=== PATIENT | female | born 1965 | race Caucasian/White ===

== ENCOUNTER → 2017-06-20 | Outpatient (CLI) | payer BC ==
[~2017-06-20] VITALS: Ht 160 cm; Wt 64.0 kg
[~2017-06-20] MED LIST: ACETAMINOPHEN 325 MG TAB PO PRN; ASPI-435 PO; ATROPINE SULFATE 0.1 MG/ML 5ML SYR IV PRN; BENZOCAIN/TETRACA/BUTAM SPRAY 200 APPLN/20 GM SPRY ONE; CANNULA ONE; DC ALL ANTICOAGULANTS ONE; FENTANYL CITRATE INJ 50 MCG/1 ML 2 ML VIAL ONE; MIDAZOLAM HCL 1 MG/ML 2ML VIAL ONE; ONDANSETRON INJ 2 MG/ML 2 ML VIAL IV PRN; SERT50TA PO; SODIUM CHLORIDE 0.9% 1000ML 1,000 ML IV SCH; SODIUM CHLORIDE 0.9% 1000ML 250 ML IV PRN
[2017-06-20 07:09] VITALS: BP 121/60; PULSE 60; TEMP 37.2; O2SAT 100; Ht 160 cm; Wt 64.0 kg
--- NOTE | 2017-06-20 07:57 | History and Physical ---
History General Date of Service: Jun 20, 2017. Stated Complaint: Mitral Valve Stenosis *Ambrose Doing* History of Present Illness History: This is a 51-year-old female with a history of rheumatic fever as a child. In 1998 she was evaluated by her security police in [place] and was sent to [facility] where she had a transesophageal echocardiogram. She was told that she had mitral stenosis. The mitral stenosis has not bothered her over the years until recently she's noted some increased shortness of breath and dyspnea with activity. She had an echocardiogram completed as an outpatient which shows severe mitral stenosis with dilatation of left atrium and no significant pulmonary hypertension. I saw this patient in late March for preoperative risk assessment regarding her breast biopsy. Fortunately that breast biopsy was negative. She is now here for workup for mitral stenosis which will include a transesophageal echocardiogram along with a left and right heart catheterization. Review of Systems The 10 point review of systems is negative except for the history of chief complaint. All Other Systems: Reviewed and Negative Past Medical/Surgical History The patient has minimal past medical history. She has no prior history of diabetes, hypercholesterolemia, asthma, strokes or kidney disease. As an outpatient she had a Holter monitor that failed to show any atrial arrhythmias. She is currently in every day smoker. Family History The family has a history of diabetes no significant heart history Social History Smoking Status: Current Every Day Smoker Current Home Medications Reported Home Medications Medications Dose Route/Sig Max Daily Dose Days Date Category Zoloft (Sertraline HCl) 50 Mg Tab 50 Mg PO DAILY 06/20/17 Reported Physical Exam Date Time Temp Pulse Resp B/P (MAP) Pulse Ox O2 Delivery O2 Flow Rate FiO2 06/20/17 07:09 37.2 60 10 121/60 (80) 100 Nasal Cannula 2 Weight in Kilograms: 64 Head: normocephalic ENMT: normal ENT inspection, hearing grossly normal, pharynx normal Neck: supple, trachea midline, no masses Lungs: Auscultation: breath sounds normal, no wheezing, no rales/crackles, no rhonchi Cardiovascular: Heart Auscultation: RRR, murmur (diastolic murmur along the left sternal border) Peripheral Pulses: Bruits: none appreciated Carotid Pulse: normal on the left, normal on the right Radial Pulse: normal on the left, normal on the right Abdomen: Inspection & Palpation: soft, non-distended, no tenderness, guarding & rebound Liver: no hepatomegaly Musculoskeletal: normal, normal strength (5/5 throughout) Extremities: no cyanosis, no edema Neurologic: Gait & Station: normal gait Cranial Nerves: grossly intact Sensation: grossly intact Impression Assessment and Plan Impression: 1. Rheumatic mitral stenosis 2. History of smoking Recommendations: As outlined above the patient is here for further evaluation and workup of mitral stenosis. She will have a transesophageal echocardiogram followed by a right and left heart catheterization today. I've explained the risk benefit and intent of both the transesophageal echocardiogram and heart catheterization. She understands and wants to proceed. The procedures are being completed in anticipation of treatment of her mitral stenosis either by balloon valvuloplasty or possible surgical commissurotomy.
[2017-06-20 08:33] VITALS: BP 137/63; PULSE 59; O2SAT 96
[2017-06-20 08:35] VITALS: BP 128/61; PULSE 66; O2SAT 95
[2017-06-20 08:40] VITALS: BP 130/86; PULSE 84; O2SAT 95
[2017-06-20 08:45] VITALS: BP 155/75; PULSE 84; O2SAT 95
--- NOTE | 2017-06-20 10:24 | Pre Sedation Assessment ---
Pre Sedation Assessment General Date of Sedation: Jun 20, 2017. 9:29 AM Vital Signs Past 12 Hours Date Time Temp Pulse Resp B/P (MAP) Pulse Ox O2 Delivery O2 Flow Rate FiO2 06/20/17 10:15 59 16 128/70 (89) 100 Room Air 06/20/17 10:10 55 16 130/72 (91) 100 Room Air 06/20/17 10:05 55 16 132/79 (96) 100 Room Air 06/20/17 10:00 57 16 135/79 (97) 100 Room Air 06/20/17 08:59 60 14 123/52 (75) 99 Room Air 06/20/17 08:50 63 12 156/68 (97) 98 Room Air 06/20/17 08:49 Nasal Cannula 2 06/20/17 08:45 84 10 155/75 95 Nasal Cannula 2 06/20/17 08:40 84 10 130/86 95 Nasal Cannula 2 06/20/17 08:39 Nasal Cannula 2 06/20/17 08:35 66 17 128/61 95 Nasal Cannula 2 06/20/17 08:33 59 17 137/63 96 Nasal Cannula 2 06/20/17 07:09 37.2 60 10 121/60 (80) 100 Nasal Cannula 2 Review Cardiovascular: regular rate, rhythm, no gallop, no JVD Lungs: chest non-tender, lungs clear Pre-Sedation Airway Assessment Smoking Status: Current Every Day Smoker Hx of Sleep Apnea: No Hx of difficult intubation: No Short Thick Neck: No Oral Cavity: WNL Mallampati Classification: Class II ASA Classification: Class II NPO Status Date of Last Intake of Fluids: Jun 19, 2017 Time of Last Intake of Fluids: 23:00 Date of Last Intake of Solids: Jun 19, 2017 Time of Last Intake of Solids: 23:00 Procedure Planning Contraindications for Sedation: None Current Medications Reviewed: Yes Notes The planned sedation has been discussed with the patient. Informed Consent was obtained. I have identified the patient, determined the appropriateness of sedation and have assessed the patient immediately prior to the procedure. All medicine(s) and interventions are by my order.
--- NOTE | 2017-06-20 10:25 | Post Sedation Assessment ---
Post Sedation Assessment General Date of Sedation Jun 20, 2017. 9:59 AM Vital Signs: Vital Signs Past 12 Hours Date Time Temp Pulse Resp B/P (MAP) Pulse Ox O2 Delivery O2 Flow Rate FiO2 06/20/17 10:15 59 16 128/70 (89) 100 Room Air 06/20/17 10:10 55 16 130/72 (91) 100 Room Air 06/20/17 10:05 55 16 132/79 (96) 100 Room Air 06/20/17 10:00 57 16 135/79 (97) 100 Room Air 06/20/17 08:59 60 14 123/52 (75) 99 Room Air 06/20/17 08:50 63 12 156/68 (97) 98 Room Air 06/20/17 08:49 Nasal Cannula 2 06/20/17 08:45 84 10 155/75 95 Nasal Cannula 2 06/20/17 08:40 84 10 130/86 95 Nasal Cannula 2 06/20/17 08:39 Nasal Cannula 2 06/20/17 08:35 66 17 128/61 95 Nasal Cannula 2 06/20/17 08:33 59 17 137/63 96 Nasal Cannula 2 06/20/17 07:09 37.2 60 10 121/60 (80) 100 Nasal Cannula 2 Post Procedure Recovery Score Activity: (2) Moves 4 extremities * Respiration: (2) Deep breath/cough Circulation: (2) +/-20% PreAnes Value Consciousness: (2) Fully Awake Oxygen Saturation: (2) > 92% On Room Air Post Anesthesia Score: 10 Discharge Sedation Level of Care: Phase I Post Sedation Plan On clinical assessment, the patient appears to have tolerated the sedation without complications. Patient is recovering as anticipated. Patient will continue to be monitored by nursing and may be discharged when sedation discharge criteria are met per below protocol. Upon Completions of procedure and additional 15 minutes continue every 5 minute vital signs and the P.A.R. score; then discharge to a Phase I or Fast Track to Phase II per the following guidelines: * Discharge Patient to appropriate Phase II area if PAR is 8 or greater or return to pre- procedure baseline. The post - procedure orders will be as directed. * If PAR score is less than 8 or not return to pre-procedure baseline then patient will follow Phase I monitoring till PAR is reached for Phase II. The Phase I may be done in procedure room or may call to secure a Phase I area. * If naloxone or flumazenil are used for reversal, hold in Phase I for an additional 60 -120 minutes before discharge to Phase II. Please call the Sedation Physician to re-evaluate and complete post-note for discharge to Phase II area. Do NOT discharge from procedure sedation or Phase 1 until post- sedation evaluation note is complete by procedure /sedation MD Sedation Discharge Instructions to be given to the patient at discharge to home.
--- NOTE | 2017-06-20 10:37 | Procedure Note ---
Cardiac Cath Report Procedure: 1. Right heart catheterization 2. Left heart catheterization 3. Coronary angiography 4. Left ventriculogram History: This is a 51-year-old female with a history of rheumatic fever as a child who was found by echocardiography to have mitral stenosis. She is here today for a cardiac catheterization in preparation for possible balloon valvuloplasty. Procedure summary: After the patient was given informed consent. She was taken to the cardiac catheterization lab where she was prepped and draped in the usual manner. A right transfemoral approach was utilized. A Ruthven-Marvin catheter was utilized for the right heart pressures and cardiac outputs. A 5 [place] pigtail catheter was utilized for left ventriculogram. 5 [place] diagnostic catheters were utilized for coronary angiograms. Following the procedure the patient had the arterial site closed with a minx device and she was returned to the holding area the catheter builder in stable condition. Hemodynamic data: Right atrial pressure 6/2 mmHg Right ventricular pressure 35/4 mmHg Pulmonary artery pressure 33/6 mmHg Pulmonary capillary wedge pressure 11 mmHg Left ventricular pressure 125/11 mmHg Central aortic pressure 126/55 mmHg Cardiac output by Izzy equation 4.2 L/m Cardiac output by thermal dilution 5.2 L/m Mitral valve mean gradient by Izzy equation 11.8 mmHg with a valve area being 0.95 cm Mitral valve mean gradient by thermal dilution 11.8 mmHg with a valve area being 1.18 cm Coronary angiography: Selective injections of the left coronary artery revealed the left trunk be patent. The LAD is actually small especially distally to the apex of the heart. The LAD system is widely patent and within normal limits. The left circumflex artery consists of a small first marginal branch and a large second marginal branch. The left circumflex system is widely patent within normal limits. Selective injections of the right coronary artery revealed to be dominant. The right coronary arteries with an appearance, widely patent and within normal limits. Left ventriculogram: The left ventricle is of normal size. Normal left ventricular systolic function with estimated left ventricular ejection fraction of 55%. The LVEDP was 11 mmHg. Summary: The patient has severe mitral stenosis. There is borderline to mild pulmonary hypertension. Widely patent and normal coronary anatomy. Normal LV function. Recommendations: The patient will be referred for an evaluation at the valve clinic at [facility] for consideration of balloon valvuloplasty.
--- NOTE | 2017-06-20 10:50 | Cardiac Catheterization ---
Procedure Note Procedure Date Jun 20, 2017. Pre-Procedure Diagnosis Valvular Disease AUC Score 9 Post-Procedure Diagnosis Normal Coronary Arteries Procedure(s) Performed Coronary Angiography, Left Heart Cath, Right Heart Cath, LV Angiography Supervisor Painting Dr. Boggs Sales Engagement Manager(s) None Estimated Blood Loss None Medication(s) Heparin, Versed, Lidocaine 1% Summary of Findings See dictated report Hemodynamics Rest Ao: 126/55 Final Ao: 129/63 LV: 128/8 Recommendations valve replacement Specimens None Radiation Exposure (mGy) 718 Contrast (mls) 104 Procedural Complication(s) None Disposition Jewelry Repairer Holding/Recovery ACC Data Cardiac Status Clinical evaluation leading to the procedure CAD Presntation: No Sxs, no angina Anginal Classification: No symptoms Heart Failure: No Cardiogenic Shock w/in 24Hrs: No Cardiac Arrest w/in 24Hrs: No Imaging studies past 6 months: Yes Stress studies past 6 months: No Coronary Anatomy Dominant: Right Left Main (% Stenosis): Normal LAD (% Stenosis): Normal Circumflex (% Stenosis): Normal RCA (% Stenosis): Normal Left Ventricular Angiography EF (%): 55 Mitral Regurgitation: None Diagnostic Status: Elective Closure Device Percutaneous Entry Location: Femoral Closure Device: Mynx Recommendations: management recommendations (the patient will be seen at the health clinic at [facility])
--- NOTE | 2017-06-20 10:55 | Discharge Instructions ---
Discharge Instructions Procedure Procedure Date: Jun 20, 2017. Reason for Visit: Mitral Valve Stenosis *Ambrose Doing*. Discharge Discharge Date: Jun 20, 2017. Discharge Diagnosis: Mitral stenosis Last Recorded Wt (Kilograms): 64 Anesthesia Post Anesthesia Instructions: If you have had General Anesthesia or IV Sedation: * Do not drive today. * Resume driving when surgeon permits. * Do not make important decisions or sign legal documents today. * Call surgeon for: 1. Temperature elevations greater than 101 degrees F. 2. Uncontrollable pain. 3. Excessive bleeding. 4. Persistent nausea and vomiting. 5. Medication intolerance (nausea, vomiting or rash). * For nausea and vomiting use only clear liquids such as: tea, soda, bouillon until nausea subsides, then gradually increase diet as tolerated. * If you have any concerns or questions, call your surgeon's office. If physician is unavailable and it is an emergency, call 911 or go to the nearest emergency room. Instructions Activity Recommendations: limitations Recommended Home Diet: resume previous diet Allergies: Coded Allergies: Penicillins (Unverified Allergy, Intermediate, HIVES, 06/20/17) as per patient as a child Provider Instructions ACTIVITY RECOMMENDATIONS: It is common to feel weak and fatigue for a few days. * Do not drive or operate any motorized equipment for the next three days. * Limit stair usage (2 or 3 trips a day only) for the next three days. * Do not lift anything heavier than 10 pounds for the next three days. * Do not engage in vigorous exercise or any sports for the next five days. * You may shower the day after your procedure, but do not immerse the area for three days. Cleanse the site gently with soap and water. SPECIAL CARE INSTRUCTIONS: * You may replace the pressure dressing or band-aid the morning after the procedure. * After your procedure, it is normal to have a small bruise or small lump at the site. Examine your site daily for any change in the bruise or lump, redness, swelling, drainage or numbness. Notify your doctor if any change. BLEEDING: * If there is a small amount of bleeding at the site, lie down and apply firm pressure with a clean cloth for ten minutes. When the bleeding stops, lie quietly keeping the procedure limb straight for six hours. Notify your doctor as soon as possible. * If the bleeding does not stop after ten minutes or if there is a large amount of bleeding or spurting, call 911 immediately. Continue to lie down and hold firm pressure until help arrives. SKIN IRRITATION: * You may experience some redness and/or swelling in the area where radiation was administered. If any skin irritation occurs, please contact your family physician. FOLLOW UP VISIT: Keep any scheduled doctor appointments. Follow Up Follow-up with: Follow-up appointment Walker Barajas to see Dr. Higgins July 04. Our office will call to confirm Bernie Johnson Recommendations: Call your doctor if: * Temperature above 101 degrees * Pain not relieved by pain medicine ordered * There is increased drainage or redness from any incision * You have any unanswered questions or concerns. Your Doctors Instructions noted above were prepared by provider Ronal Boggs. Patient Signature Section: Patient Instructions Signature Page Kalee Jason Patient (or Guardian) Signature/Date: I have read and understand the instructions given to me by my caregivers. Caregiver/RN/Doctor Signature/Date: The above-named patient and/or guardian has received patient instructions on this date. + Original Patient Signature Page (only) stays with chart. Please make copy for patient.
[2017-06-20 14:00] VITALS: BP 128/76; PULSE 52; O2SAT 100
--- NOTE | 2017-06-20 15:07 | TEE ---
*NOTICE TO RECEIVING DEMOCRAT AGENCY This information is strictly Confidential and protected under [place] law. [place] law prohibits you from making any further disclosure of this information unless further disclosure is expressly permitted by the written consent of the person to whom it pertains or is authorized by law. A general authorization for the release of medical or other information is not sufficient for this purpose. Hospital accepts no responsibility if the information is made available to any other person, INCLUDING THE PATIENT. Interpretation Summary * Name: JOSAFAT COLLINS Study Date: 06/20/2017 07:41 AM BP: 137/63 mmHg * Patient Location: [facility] HR: 83 * : 1965 (M/d/yyyy) Gender: Female Height: 63 in * Age: 51 yrs Ethnicity: [place] Weight: 140 lb * Ordering Physician: Ronal Boggs DO * Performed By: Halle Rodriguez RDCS * * Reason For Study: Mitral Stenosis * BSA: 1.7 m2 * -- Conclusions -- * Rheumatic mitral stenosis. * There is severe mitral stenosis. * The left atrium is moderately dilated. * No thrombus is detected in the left atrial appendage. * Left ventricular systolic function is normal. Procedure Details * The transesophageal portion of this study was personally supervised by the undersigned interpreting physician. * VASU Probe #1 utilized for procedure. * The study was performed in Cardiopulmonary Department. * Time out was conducted by the physician, nurse, and microbiology technician with positive identification of patient and procedure. * Informed consent for Transesophageal Echocardiogram was obtained prior to the procedure. * An intravenous line was placed. A topical anesthetic agent was used for oropharangeal anesthesia. A bite block was inserted. * The patient's vital signs, including blood pressure, heart rate, pulse oximetry and cardiac rhythm were monitored throughout the procedure . * Midazolam 3 mg administered for sedation. * Fentanyl 25 mcg was administered for procedural sedation. * The posterior oropharynx was anesthetized using a topical anesthetic spray. A bite guard was inserted. * A multifrequency, multiplane transesopheageal echocardiographic endoscope was inserted and manipulated in the standard fashion to achieve multiplane views. * The transesophageal probe was passed without difficulty. * The usual views were obtained; basal, mid-esophageal, transgastric and aortic views. * The patient tolerated the procedure well without evidence of orophangeal or esophageal trauma. * A 2D transesophageal echocardiogram with spectral and color flow Doppler was performed. * Start time: 8:33 am End time: 8:49 am * A 2D transesophageal echocardiogram with Doppler and color flow Doppler was performed. Left Ventricle * The left ventricle is normal in size. * Left ventricular systolic function is normal. * Ejection Fraction = 60-65%. Right Ventricle * The right ventricle is normal size. * The right ventricular systolic function is normal. Atria * The left atrium is moderately dilated. * No thrombus is detected in the left atrial appendage. * Right atrial size is normal. * No ASD detected; PFO is not assessed. Mitral Valve * Rheumatic mitral stenosis. * There is severe mitral stenosis. Tricuspid Valve * The tricuspid valve is normal in structure and function. Aortic Valve * The aortic valve is tricuspid. The leaflet thickness if normal. There is no aortic stenosis, and no significant insufficiency. * The aortic valve opens well. * There is no significant aortic regurgitation. Pulmonic Valve * The pulmonic valve is not well seen, but is grossly normal. * There is no significant pulmonary regurgitation. Great Vessels * The aortic root and proximal ascending aorta are normal sized. Pericardium * There is no pericardial effusion. MMode 2D Measurements and Calculations LVOT diam 1.8 cm LVOT area 2.5 cm\S\2 Doppler Measurements and Calculations MV V2 max 228.6 cm/sec MV max PG 20.9 mmHg MV V2 mean 171.4 cm/sec MV mean PG -12.62 mmHg MV V2 VTI 64.3 cm MVA(VTI) 1.0 cm\S\2 MV P1/2t max radha 222.2 cm/sec MV P1/2t 91.2 msec MVA(P1/2t) 2.4 cm\S\2 MV dec slope 713.6 cm/sec\S\2 LV V1 max PG 6.7 mmHg LV V1 mean PG 2.7 mmHg LV V1 max 129.3 cm/sec LV V1 mean 74.3 cm/sec LV V1 VTI 26.8 cm SV(LVOT) 66.2 ml SI(LVOT) 39.8 ml/m\S\2
== END | disposition home or self-care (01) ==
LOC: C.CPL 06:43
PROVIDERS: ATTEND Internal Medicine Interventional Cardiology
DX: I05.0 Rheumatic mitral stenosis (principal); F17.200 Nicotine dependence, unspecified, uncomplicated

== ENCOUNTER 2017-09-03 18:40 | Inpatient (IN) | payer BC ==
[~2017-09-03] VITALS: Ht 162.6 cm; Wt 61.7 kg
[~2017-09-03 18:40] MED LIST changes: -ACETAMINOPHEN 325 MG TAB PO PRN; -ATROPINE SULFATE 0.1 MG/ML 5ML SYR IV PRN; -BENZOCAIN/TETRACA/BUTAM SPRAY 200 APPLN/20 GM SPRY ONE; -CANNULA ONE; -DC ALL ANTICOAGULANTS ONE; -FENTANYL CITRATE INJ 50 MCG/1 ML 2 ML VIAL ONE; -MIDAZOLAM HCL 1 MG/ML 2ML VIAL ONE; -ONDANSETRON INJ 2 MG/ML 2 ML VIAL IV PRN; -SODIUM CHLORIDE 0.9% 1000ML 1,000 ML IV SCH; -SODIUM CHLORIDE 0.9% 1000ML 250 ML IV PRN
[2017-09-03] MEDS ORDERED: SODIUM CHLORIDE 0.9% 1000ML 1,000 ML IV STA (18:45)
[2017-09-03] MEDS ORDERED: ONDANSETRON INJ 2 MG/ML 2 ML VIAL IV STA (18:45)
--- NOTE | 2017-09-03 19:09 | DIAGNOSTIC IMAGING REPORT ---
CHEST ONE VIEW PORTABLE CLINICAL HISTORY: Overdose COMPARISON STUDY: No previous studies for comparison. FINDINGS: The heart is at the upper limits of normal in size. There is prominence left heart border, possibly indicative of a prominent left atrial appendage.. There is no focal pulmonary consolidation. There is no failure. There are no pleural effusions.[ IMPRESSION: No active disease in the chest. Electronically signed by: Shaquille Dee M.D. 09/03/2017 7:08 PM Dictated Date/Time: 09/03/2017 7:07 PM
[2017-09-03 19:18] LABS: BASO % 0.5 %; BASO ABS # 0.04 K/uL (0-0.2); EOS % 0.8 %; EOS ABS # 0.06 K/uL (0-0.5); HEMATOCRIT 40.3 % (37-47); HEMOGLOBIN 13.8 g/dL (12.0-16.0); IG# 0.01 K/uL (0.00-0.02); LYMPH % 19.2 %; LYMPH ABS # 1.48 K/uL (1.2-3.4); MEAN CELL VOLUME 93.7 fL (80-100); MEAN CORPUSCULAR HEMOGLOBIN 32.1 pg (25-34); MEAN CORPUSCULAR HGB CONC 34.2 g/dl (32-36); MEAN PLATELET VOLUME 9.7 fL (7.4-10.4); MONO % 9.2 %; MONO ABS # 0.71 K/uL (0.11-0.59); NEUT % 70.2 %; NEUT ABS # 5.41 K/uL (1.4-6.5); PLATELET COUNT 215 K/uL (130-400); RED CELL DISTRIBUTION WIDTH CV 14.8 % (11.5-14.5); RED CELL DISTRIBUTION WIDTH SD 50.4 fL (36.4-46.3); WHITE BLOOD COUNT 7.71 K/uL (4.8-10.8)
[2017-09-03 19:25] LABS: PTT PATIENT 23.8 SECONDS (21.0-31.0)
[2017-09-03 19:36] LABS: BLOOD UREA NITROGEN 13 mg/dl (7-18); CREATININE 0.86 mg/dl (0.60-1.20); GLUCOSE 93 mg/dl (70-99)
[2017-09-03 19:37] LABS: ALBUMIN 3.5 gm/dl (3.4-5.0); ALT/SGPT 19 U/L (12-78); AST/SGOT 16 U/L (15-37); CALCIUM 8.2 mg/dl (8.5-10.1); CARBON DIOXIDE 22 mmol/L (21-32); POTASSIUM 3.5 mmol/L (3.5-5.1); SODIUM 135 mmol/L (136-145)
[2017-09-03 19:39] LABS: ALKALINE PHOSPHATASE 57 U/L (45-117); LIPASE 2344 U/L (73-393); TOTAL PROTEIN 6.4 gm/dl (6.4-8.2)
[2017-09-03] MEDS ORDERED: ASPI81TA28 PO (19:44)
[2017-09-03] MEDS ORDERED: SERT1TAB68 PO (19:44)
[2017-09-03] MEDS ORDERED: TPRSR25 PO (19:45)
[2017-09-03] MEDS ORDERED: CLOP1TAB15 PO (19:45)
--- NOTE | 2017-09-03 21:36 | EMERGENCY ROOM VISIT NOTE ---
History Report prepared by Jeff: Nuvia Olson Under the Supervision of: Dr. Mahamed Oropeza D.O. First contact with patient: 18:40 Chief Complaint: OVERDOSE (INTENTIONAL) Stated Complaint: OVERDOSE History of Present Illness The patient is a 51 year old female who presents to the Emergency Room with persistent overdose starting 1400 today. The patient presents to the ED by EMS. The patient got off work at 1400 today. She returned home and started drinking liquor. She also reports taking 4-5 [place] this afternoon. She does not drink alcohol daily. She denies any drug use. The patient is currently going through a separation with her . She stated that she does not want to live anymore. She has never tried hurting herself before. She has an outpatient therapist, but has never had inpatient psychiatric care before. She last saw her therapist 1 month ago. She had mitral valve balloon surgery 2 weeks ago at [facility]. She does smoke. Her last menstrual period was on the 29th. She denies any nausea or vomiting. The history is limited secondary to patient's intoxication. Source of History: patient, EMS History Limited By: intoxication Onset: 1400 Quality: other (overdose) Timing: other (persistent) Associated Symptoms: No nausea, No vomiting Review of Systems See HPI for pertinent positives & negatives. A total of 10 systems reviewed and were otherwise negative. Past Medical & Surgical Surgical Problems: (1) S/P balloon mitral valvuloplasty Family History No pertinent family history stated. Social History Smoking Status: Current Every Day Smoker Occupation Status: employed Current/Historical Medications Scheduled Aspirin (Aspirin Ec), 81 MG PO DAILY Clopidogrel (Plavix), 75 MG PO DAILY Metoprolol Succinate (Metoprolol Succinate ER), 25 MG PO DAILY Sertraline Hcl (Zoloft), 100 MG PO DAILY Allergies Coded Allergies: Penicillins (Unverified Allergy, Intermediate, HIVES, 06/20/17) as per patient as a child Physical Exam Vital Signs Date Time Temp Pulse Resp B/P (MAP) Pulse Ox O2 Delivery O2 Flow Rate FiO2 09/03/17 21:26 67 09/03/17 21:12 78 18 128/85 100 Room Air 09/03/17 19:17 99 Room Air 09/03/17 18:40 36.8 67 18 128/85 99 Room Air Physical Exam GENERAL: Patient is awake, alert, obtunded, and intoxicated appearing. EYES: The conjunctivae are clear. The pupils are round and reactive. EARS, NOSE, MOUTH AND THROAT: The nose is without any evidence of any deformity. Mucous membranes are moist tongue is midline NECK: The neck is nontender and supple. RESPIRATORY: Normal respiratory effort is noted there is no evidence of wheezing rhonchi or rales CARDIOVASCULAR: Tachycardic, but regular. No definite murmur noted. GASTROINTESTINAL: The abdomen is soft. Bowel sounds are present in all quadrants. Abdomen is nontender MUSCULOSKELETAL/EXTREMITIES: There is no evidence of gross deformity full range of motion is noted in the hips and shoulders SKIN: There is no obvious evidence of any rash. There are no petechiae, pallor or cyanosis noted. NEUROLOGIC: Patient is awake alert and oriented x3 strength is symmetric patellar reflexes are 2+ bilaterally PSYCH: Affect was flat. Patient was tearful and makes poor eye contact. Patient was very guarded and vague about the events of the day. Medical Decision & Procedures ER Provider Diagnostic Interpretation: X-ray results as stated below per interpretation by me and the radiologist. CHEST ONE VIEW PORTABLE CLINICAL HISTORY: Overdose COMPARISON STUDY: No previous studies for comparison. FINDINGS: The heart is at the upper limits of normal in size. There is prominence left heart border, possibly indicative of a prominent left atrial appendage.. There is no focal pulmonary consolidation. There is no failure. There are no pleural effusions.[ IMPRESSION: No active disease in the chest. Electronically signed by: Shqauille Dee M.D. 09/03/2017 7:08 PM Dictated Date/Time: 09/03/2017 7:07 PM Laboratory Results 09/03/17 19:03 Red Blood Count 4.30, Mean Corpuscular Volume 93.7, Mean Corpuscular Hemoglobin 32.1, Mean Corpuscular Hemoglobin Concent 34.2, Mean Platelet Volume 9.7, Neutrophils (%) (Auto) 70.2, Lymphocytes (%) (Auto) 19.2, Monocytes (%) (Auto) 9.2, Eosinophils (%) (Auto) 0.8, Basophils (%) (Auto) 0.5, Neutrophils # (Auto) 5.41, Lymphocytes # (Auto) 1.48, Monocytes # (Auto) 0.71, Eosinophils # (Auto) 0.06, Basophils # (Auto) 0.04 09/03/17 19:03 Test 09/03/17 00:00 09/03/17 19:03 Urine Color YELLOW Urine Appearance CLEAR (CLEAR) Urine pH 5.5 (4.5-7.5) Urine Specific [place] 1.010 (1.000-1.030) Urine Protein NEG (NEG) Urine Glucose (UA) NEG (NEG) Urine Ketones NEG (NEG) Urine Occult Blood NEG (NEG) Urine Nitrite NEG (NEG) Urine Bilirubin NEG (NEG) Urine Urobilinogen NEG (NEG) Urine Leukocyte Esterase NEG (NEG) Urine Opiates Screen POS (NEG) Urine Methadone, Qualitative NEG (NEG) Urine Barbiturates NEG (NEG) Urine Phencyclidine (PCP) Level NEG (NEG) Ur Amphetamine/Methamphetamine NEG (NEG) MDMA (Ecstasy) Screen NEG (NEG) Urine Benzodiazepines Screen NEG (NEG) Urine Cocaine Metabolite NEG (NEG) Urine Marijuana (THC) NEG (NEG) White Blood Count 7.71 K/uL (4.8-10.8) Red Blood Count 4.30 M/uL (4.2-5.4) Hemoglobin 13.8 g/dL (12.0-16.0) Hematocrit 40.3 % (37-47) Mean Corpuscular Volume 93.7 fL (80-100) Mean Corpuscular Hemoglobin 32.1 pg (25-34) Mean Corpuscular Hemoglobin Concent 34.2 g/dl (32-36) Platelet Count 215 K/uL (130-400) Mean Platelet Volume 9.7 fL (7.4-10.4) Neutrophils (%) (Auto) 70.2 % Lymphocytes (%) (Auto) 19.2 % Monocytes (%) (Auto) 9.2 % Eosinophils (%) (Auto) 0.8 % Basophils (%) (Auto) 0.5 % Neutrophils # (Auto) 5.41 K/uL (1.4-6.5) Lymphocytes # (Auto) 1.48 K/uL (1.2-3.4) Monocytes # (Auto) 0.71 K/uL (0.11-0.59) Eosinophils # (Auto) 0.06 K/uL (0-0.5) Basophils # (Auto) 0.04 K/uL (0-0.2) RDW Standard Deviation 50.4 fL (36.4-46.3) RDW Coefficient of Variation 14.8 % (11.5-14.5) Immature Granulocyte % (Auto) 0.1 % Immature Granulocyte # (Auto) 0.01 K/uL (0.00-0.02) Prothrombin Time 10.0 SECONDS (9.0-12.0) Prothromb Time International Ratio 1.0 (0.9-1.1) Activated Partial Thromboplast Time 23.8 SECONDS (21.0-31.0) Partial Thromboplastin Ratio 0.9 Anion Gap 7.0 mmol/L (3-11) Est Creatinine Clear Calc Drug Dose 66.9 ml/min Estimated GFR () 90.7 Estimated GFR (Non- 78.2 BUN/Creatinine Ratio 15.1 (10-20) Calcium Level 8.2 mg/dl (8.5-10.1) Total Bilirubin 0.3 mg/dl (0.2-1) Direct Bilirubin < 0.1 mg/dl (0-0.2) Aspartate Amino Transf (AST/SGOT) 16 U/L (15-37) Alanine Aminotransferase (ALT/SGPT) 19 U/L (12-78) Alkaline Phosphatase 57 U/L (45-117) Total Creatine Kinase 62 U/L (26-192) Total Protein 6.4 gm/dl (6.4-8.2) Albumin 3.5 gm/dl (3.4-5.0) Lipase 2344 U/L (73-393) Human Chorionic Gonadotropin, Qual NEG (NEG) Salicylates Level 3.8 mg/dl (2.8-20) Acetaminophen Level 7 ug/ml (10-30) Ethyl Alcohol mg/dL 284.0 mg/dl (0-3) Laboratory results per my review. Medications Administered Medications (Trade) Dose Ordered Sig/Amanda Route Start Time Stop Time Status Last Admin Dose Admin Sodium Chloride 1,000 ml @ 999 mls/hr Q1H1M STAT IV 09/03/17 18:45 18 19:45 DC 18 18:45 999 MLS/HR Ondansetron HCl (Zofran Inj) 4 mg NOW STAT IV 09/03/17 18:45 18 18:46 DC 09/03/17 19:37 4 MG Sodium Chloride 1,000 ml @ 75 mls/hr [id number] IV 09/03/17 21:53 10/03/17 21:52 09/03/17 21:53 75 MLS/HR ECG Per My Interpretation Indication: toxicologic Rate (beats per minute): 62 Rhythm: normal sinus Findings: no ectopy, other (no acute ST segment abnormality) Comparison ECG Date: no prior available ED Course 1840: The patient was evaluated in room C10. A complete history and physical examination were performed. 1844: Zofran Inj 4 mg IV, NSS 1,000 ml @ 999 mls/hr IV 2016: Upon reevaluation, the patient is stable. The patient will be evaluated for further management and care. 2019: [facility] The patient will be evaluated for further management. Medical Decision Prior records/ancillary studies reviewed. Triage Nursing notes reviewed. Additional history obtained from EMS. Differential diagnosis: Etiologies such as mood disorder, infection, hypoglycemia, electrolyte abnormalities, cardiac sources, intracerebral event, toxicologic, neurologic, as well as others were entertained. The patient is a 51-year-old female who presented to the emergency department for an evaluation of depression. The patient has had problems with depression recently. She drank a significant amount of alcohol and took pills in an attempt to herself. The patient had a severe anxiety provoking episode tonight because of a recently significant other. The patient was not able to be medically cleared in the emergency department because of her elevated alcohol level but also had signs of pancreatitis on laboratory studies. She was not actively vomiting. She was treated with IV fluids and IV anti-medics. I discussed patient's laboratory and radiographic studies with her. I also discussed her case with the on-call [facility] hospitalist group. They have agreed to evaluate the patient in the emergency department for further management and disposition. Medication Reconcilliation Current Medication List: was personally reviewed by me Blood Pressure Screening Patient's blood pressure: Normal blood pressure Blood pressure disposition: Did not require urgent referral Consults Time Called: 2014 [facility]ing Physician[facility] Returned Call: 2019 I discussed the patient's case with him. The patient will be evaluated for further management. Impression Primary Impression: Depression Additional Impressions: Suicide gesture Pancreatitis Alcohol intoxication Scribe Attestation The scribe's documentation has been prepared under my direction and personally reviewed by me in its entirety. I confirm that the note above accurately reflects all work, treatment, procedures, and medical decision making performed by me. Departure Information Dispostion Being Evaluated By Hospitalist Referrals Rebeca Sidhu D.O. (PCP) Patient Instructions My [facility] Problem Qualifiers Primary Impression: Depression Depression Type: unspecified Qualified Codes: F32.9 - Major depressive disorder, single episode, unspecified Additional Impressions: Suicide gesture Encounter type: initial encounter Qualified Codes: X83.8XXA - Intentional self-harm by other specified means, initial encounter Pancreatitis Chronicity: acute Pancreatitis type: alcohol induced Acute pancreatitis complication: unspecified Qualified Codes: K85.20 - Alcohol induced acute pancreatitis without necrosis or infection Alcohol intoxication Complication of substance-induced condition: uncomplicated Qualified Codes: F10.920 - Alcohol use, unspecified with intoxication, uncomplicated
[2017-09-03] MEDS: SODIUM CHLORIDE 0.9% 1000ML 1,000 ML IV SCH (21:53)
[2017-09-03] MEDS ORDERED: LORAZEPAM 0.5 MG TAB PO ONE (22:00)
[2017-09-03] MEDS ORDERED: POLYETHYLENE (MIRALAX) 17 GM PACK PO PRN (22:00)
[2017-09-03] MEDS ORDERED: NITROGLYCERIN 0.4 MG SL PER TAB CHARGE SL PRN (22:00)
[2017-09-03] MEDS ORDERED: ACETAMINOPHEN 325 MG TAB PO PRN (22:00)
[2017-09-03] MEDS ORDERED: ONDANSETRON INJ 2 MG/ML 2 ML VIAL IV PRN (22:00)
[2017-09-03 22:41] VITALS: Ht 162.6 cm; Wt 61.7 kg
--- NOTE | 2017-09-03 23:13 | HISTORY & PHYSICAL EXAMINATION ---
DATE OF ADMISSION: 09/03/2017 CHIEF COMPLAINT: Depression, suicidal ideation, and drug overdose. HISTORY OF PRESENT ILLNESS: This 51-year-old female with past medical history significant for major depression, history of rheumatic heart disease and status post balloon mitral valvoplasty last month at [facility], tobacco use disorder, presents with suicidal ideation with alcohol overdose and 5 pills of her sons Percocet tablets. She was brought in by her sisters. The patient is alert and awake, but crying and saying she just wanted to end her pain. Her heart is broken since she was last 4 months ago with her . She has 2 sons, one is a 23-year-old who lives in the apartment and 17-year-old who lives with her. As per the sister, since she broke up, she is not doing well. She is very depressed. She is on Zoloft since last 4 months and it is not helping. Recently, dose was increased to 100 mg. The patient is constantly crying and saying that she just wanted to let her pain go and she is also drinking more lately. Usually, she used to work as DJ and she used to drink in the weekends, but lately as per sister she is drinking more since about last 1 month. Today, her alcohol level was 284. Tylenol was less than 7 and positive for opiates. Currently, the patient is hemodynamically stable. Denies any chest pain. Denies shortness of breath. No nausea, no vomiting, no abdominal pain. Normal bowel and bladder movements. Ambulation is okay. No cough, no fever. Since her divorce, she is not eating much. She lost several pounds. As per sister, she is eating only here and there and also she is not sleeping much. Sleeping 1 hour here and there. She also developed some bruises since she was started on aspirin and Plavix since her valve surgery and she is supposed to be on aspirin and Plavix for 6 months. Patient is open to help with psychiatry counseling and medications. The patient and sister request for a small dose of Ativan to relax for tonight and they are not worried about alcohol withdrawal as patient has never had withdrawal symptoms in the past and she did not drink much in the past, just started drinking more recently. ALLERGIES: PENICILLINS. PAST MEDICAL HISTORY: As mentioned above. PAST SURGICAL HISTORY: Colonoscopy, balloon valvuloplasty of the mitral valve done on July 30, 2017. Right wrist tendon surgery in 1991. MEDICATIONS: The patient is on aspirin 81 mg p.o. daily, Plavix 75 mg p.o. daily, Toprol-XL 25 mg p.o. daily, Zoloft 100 mg p.o. daily. FAMILY HISTORY: Significant for father had CAD, hypertension. Mother has dementia, diabetes, hypertension. Son has migraines. SOCIAL HISTORY: Currently . Smokes everyday. Previously used to drink on the weekends, but currently drinking more, somewhat few times in a week since last 1 month. No drug history. REVIEW OF SYMPTOMS: As per HPI. Rest of the symptoms negative. PHYSICAL EXAMINATION: GENERAL: Patient seems depressed, constantly crying, moderately build. VITAL SIGNS: Temperature 36.8, pulse 57, respiratory rate 18, blood pressure 128/85, oxygen 100% on room air. HEENT: No pallor, no icterus. Pupils equal, round, and react to light. NECK: No JVD, no neck masses, no carotid bruits. CARDIOVASCULAR: S1, S2 heard. Regular rate and rhythm. No murmur, no gallop. RESPIRATORY SYSTEM: Clear to auscultation bilaterally. No wheezing, no crackles. ABDOMEN: Soft. Bowel sounds present. Nontender. No distention. CENTRAL NERVOUS SYSTEM: Cranial nerves II-XII grossly intact. Nonfocal. EXTREMITIES: Mild pedal edema. No erythema seen. LABORATORIES: Sodium 135, potassium 3.5, chloride 106, bicarbonate 22, BUN 13, creatinine 0.8, serum glucose 93, calcium 8.2, total bilirubin 0.3, direct bilirubin less than 0.1, AST 16, ALT 19, alkaline phosphatase 57, total creatinine kinase 62, lipase 2344, hCG qualitative negative. WBC 7.7, hemoglobin 13.8, hematocrit 40.3, platelets 215. PT 10, INR 1, APTT 23.8. Urinalysis negative. Tox screen, opiates positive, Tylenol level 7, ethyl alcohol 284, salicylates 3.8. Chest x-ray, no acute disease in the chest. EKG: Normal sinus rhythm with rate of 62, no acute disease is seen. ASSESSMENT AND PLAN: This is a 51-year-old female who presents with suicidal ideation, alcoholism, and drug overdose. 1. Suicidal ideation, depression, alcoholism, drinking more lately with alcohol level 287 and took 5 tablets of Percocet. Currently, hemodynamically stable. Constantly crying and seems to be depressed since not eating, losing weight, and not sleeping. Zoloft is not helping. We will admit to tele floor one on one. Iv fluids .Psych consult in am. 2. Alcoholism. The patient was not much drinker, used to drink in weekends, but lately since last 1 month, she is drinking more, not every day but more than usual. Today, alcohol level was 284. The patient and family not worried about any withdrawals, but we will place on thiamine, folic acid, and watch for any withdrawals. 3. Elevated lipase of 2344, mostly from alcoholism. The patient does not have any acute pancreatitis symptoms. No abdominal pain. No nausea or vomiting. We will follow the lipase levels in a.m. If any concerns, we will get a CAT scan and also GI consult. 4. History of rheumatic heart disease and mitral valve disease, status post balloon mitral valvoplasty, on aspirin, Plavix, and Toprol-XL. 5. History of tobacco abuse. 6. Deep venous thrombosis prophylaxis. SCDs and TEDs for now. 7. Disposition: Admit to tele floor. level 1 full code. MTDD
[2017-09-03 23:16] VITALS: O2SAT 100
[2017-09-03 23:35] VITALS: BP 97/62; PULSE 72; TEMP 36.6; O2SAT 96
[2017-09-04 04:43] VITALS: BP 103/61; PULSE 77; TEMP 36.7; O2SAT 96
[2017-09-04 05:11] LABS: BASO % 0.9 %; BASO ABS # 0.04 K/uL (0-0.2); EOS % 2.1 %; HEMATOCRIT 36.1 % (37-47); HEMOGLOBIN 12.2 g/dL (12.0-16.0); IG# 0.01 K/uL (0.00-0.02); LYMPH ABS # 1.45 K/uL (1.2-3.4); MEAN CELL VOLUME 94.3 fL (80-100); MEAN CORPUSCULAR HEMOGLOBIN 31.9 pg (25-34); MEAN CORPUSCULAR HGB CONC 33.8 g/dl (32-36); MEAN PLATELET VOLUME 9.6 fL (7.4-10.4); MONO % 11.3 %; MONO ABS # 0.53 K/uL (0.11-0.59); NEUT % 54.5 %; NEUT ABS # 2.54 K/uL (1.4-6.5); PLATELET COUNT 185 K/uL (130-400); RED CELL DISTRIBUTION WIDTH CV 14.9 % (11.5-14.5); RED CELL DISTRIBUTION WIDTH SD 50.7 fL (36.4-46.3); WHITE BLOOD COUNT 4.67 K/uL (4.8-10.8)
[2017-09-04 05:36] LABS: CALCIUM 7.4 mg/dl (8.5-10.1); CREATININE 0.78 mg/dl (0.60-1.20); POTASSIUM 3.8 mmol/L (3.5-5.1)
[2017-09-04 06:50] VITALS: BP 105/63; PULSE 67; TEMP 36.9; O2SAT 95
[2017-09-04] MEDS ORDERED: SERTRALINE HCL 100 MG TAB PO SCH (09:00)
[2017-09-04] MEDS ORDERED: METOPROLOL SUCC 25MG EXT REL TAB PO SCH (09:00)
[2017-09-04] MEDS ORDERED: ASPIRIN 81 MG ECTAB PO SCH (09:00)
[2017-09-04] MEDS ORDERED: CLOPIDOGREL BISULFATE 75 MG TAB PO SCH (09:00)
[2017-09-04] MEDS: SODIUM CHLORIDE 0.9% 1000ML 1,000 ML IV SCH (11:40)
[2017-09-04 11:45] VITALS: BP 135/78; PULSE 64; TEMP 37.3; O2SAT 96
--- NOTE | 2017-09-04 13:51 | Progress Note ---
Internal Med Progress Note Date of Service: Sep 04, 2017. Provider Documentation: SUBJECTIVE: Patient seen and examined at bedside. She is awake and alert. When asked the reason for the alcohol misuse at home, patient reports that she drank a bottle of whiskey which she has not done before because her had left her to be in a relationship with someone else and she saw photos of them together on Facebook. She sobs during the medical interview. But she is awake and alert and cooperative on physical exam OBJECTIVE: Exam: General- no acute distress Eyes- EOMI Neck- no JVD Lungs- CTABL, no wheezing, no use of accessory muscles Heart- regular heart rate Abdomen- soft, nontender, + bowel sounds Extremities- no edema Neuro- awake and alert, no motor deficits ASSESSMENT & PLAN: This is a 51 year old F who was brought to hospital for admission for suicidal and substance misuse -alcohol and Percocet Patient was found to have elevated alcohol level on admission however when re- assessed by medical doctor, patient does not exhibit signs of lethargy or intoxication or withdrawal symptoms from alcohol or narcotic medication. Patient was found to have elevated levels of lipase 2344 but this is downtrending to 832 on follow up lab work. There is no abdominal tenderness on exam that would suggest pancreatitis Patient is known to have History of rheumatic heart disease and mitral valve disease, status post balloon mitral valvoplasty, on aspirin, Plavix, and Toprol- XL. Patient agrees to undergo inpatient psychiatry evaluation and will be discharged from medical service and transferred to the behavioral health floor of the psychiatry department. Vital Signs: Date Time Temp Pulse Resp B/P (MAP) Pulse Ox O2 Delivery O2 Flow Rate FiO2 09/04/17 12:00 Room Air 09/04/17 11:45 37.3 64 20 135/78 (97) 96 09/04/17 08:00 Room Air 09/04/17 06:50 36.9 67 16 105/63 (77) 95 Room Air 09/04/17 04:43 36.7 77 16 103/61 (75) 96 Room Air 09/04/17 04:00 Room Air 09/03/17 23:35 36.6 72 16 97/62 (74) 96 Room Air 09/03/17 23:30 Room Air 09/03/17 23:16 67 18 99/53 100 09/03/17 21:26 67 09/03/17 21:12 78 18 128/85 100 Room Air 09/03/17 19:17 99 Room Air 09/03/17 18:40 36.8 67 18 128/85 99 Room Air Lab Results: Results Past 24 Hours Test 09/03/17 19:03 09/04/17 04:56 Range/Units White Blood Count 7.71 4.67 4.8-10.8 K/uL Red Blood Count 4.30 3.83 4.2-5.4 M/uL Hemoglobin 13.8 12.2 12.0-16.0 g/dL Hematocrit 40.3 36.1 37-47 % Mean Corpuscular Volume 93.7 94.3 80-100 fL Mean Corpuscular Hemoglobin 32.1 31.9 25-34 pg Mean Corpuscular Hemoglobin Concent 34.2 33.8 32-36 g/dl Platelet Count 215 185 130-400 K/uL Mean Platelet Volume 9.7 9.6 7.4-10.4 fL Neutrophils (%) (Auto) 70.2 54.5 % Lymphocytes (%) (Auto) 19.2 31.0 % Monocytes (%) (Auto) 9.2 11.3 % Eosinophils (%) (Auto) 0.8 2.1 % Basophils (%) (Auto) 0.5 0.9 % Neutrophils # (Auto) 5.41 2.54 1.4-6.5 K/uL Lymphocytes # (Auto) 1.48 1.45 1.2-3.4 K/uL Monocytes # (Auto) 0.71 0.53 0.11-0.59 K/uL Eosinophils # (Auto) 0.06 0.10 0-0.5 K/uL Basophils # (Auto) 0.04 0.04 0-0.2 K/uL RDW Standard Deviation 50.4 50.7 36.4-46.3 fL RDW Coefficient of Variation 14.8 14.9 11.5-14.5 % Immature Granulocyte % (Auto) 0.1 0.2 % Immature Granulocyte # (Auto) 0.01 0.01 0.00-0.02 K/uL Prothrombin Time 10.0 9.0-12.0 SECONDS Prothromb Time International Ratio 1.0 0.9-1.1 Activated Partial Thromboplast Time 23.8 21.0-31.0 SECONDS Partial Thromboplastin Ratio 0.9 Sodium Level 135 141 136-145 mmol/L Potassium Level 3.5 3.8 3.5-5.1 mmol/L Chloride Level 106 114 98-107 mmol/L Carbon Dioxide Level 22 21 21-32 mmol/L Anion Gap 7.0 6.0 3-11 mmol/L Blood Urea Nitrogen 13 9 7-18 mg/dl Creatinine 0.86 0.78 0.60-1.20 mg/dl Est Creatinine Clear Calc Drug Dose 66.9 73.7 ml/min Estimated GFR () 90.7 102.0 Estimated GFR (Non- 78.2 88.0 BUN/Creatinine Ratio 15.1 12.0 10-20 Random Glucose 93 78 70-99 mg/dl Calcium Level 8.2 7.4 8.5-10.1 mg/dl Total Bilirubin 0.3 0.2-1 mg/dl Direct Bilirubin < 0.1 0-0.2 mg/dl Aspartate Amino Transf (AST/SGOT) 16 15-37 U/L Alanine Aminotransferase (ALT/SGPT) 19 12-78 U/L Alkaline Phosphatase 57 45-117 U/L Total Creatine Kinase 62 26-192 U/L Total Protein 6.4 6.4-8.2 gm/dl Albumin 3.5 3.4-5.0 gm/dl Lipase 2344 832 73-393 U/L Human Chorionic Gonadotropin, Qual NEG NEG Salicylates Level 3.8 2.8-20 mg/dl Acetaminophen Level 7 10-30 ug/ml Ethyl Alcohol mg/dL 284.0 0-3 mg/dl Magnesium Level 1.8 1.8-2.4 mg/dl
--- NOTE | 2017-09-04 13:59 | Discharge Instructions ---
Discharge Instructions Date of Service Sep 04, 2017. Admission Reason for Admission: Depression, Suicide Gesture Discharge Discharge Diagnosis / Problem: alcohol and drug misuse, suicide ideation, depression, elevated lipase Discharge Goals Goal(s): Learn about illness, Therapeutic intervention, Prevent Disease Progression Activity Recommendations Activity Limitations: per Instructions/Follow-up section Shower/Bathe: no limitations . Instructions / Follow-Up Instructions / Follow-Up This is a 51 year old F who was brought to hospital for admission for suicidal and substance misuse -alcohol and Percocet Patient was found to have elevated alcohol level on admission however when re- assessed by medical doctor, patient does not exhibit signs of lethargy or intoxication or withdrawal symptoms from alcohol or narcotic medication. Patient was found to have elevated levels of lipase 2344 but this is downtrending to 832 on follow up lab work. There is no abdominal tenderness on exam that would suggest pancreatitis Patient is known to have History of rheumatic heart disease and mitral valve disease, status post balloon mitral valvoplasty, on aspirin, Plavix, and Toprol- XL. Patient agrees to undergo inpatient psychiatry evaluation and will be discharged from medical service and transferred to the behavioral health floor of the psychiatry department. Current Hospital Diet Patient's current hospital diet: AHA Diet (Heart Healthy) Discharge Diet Recommended Diet: AHA Diet (Heart Healthy) Pending Studies Studies pending at discharge: no Laboratory Results 09/04/17 04:56 Red Blood Count 3.83, Mean Corpuscular Volume 94.3, Mean Corpuscular Hemoglobin 31.9, Mean Corpuscular Hemoglobin Concent 33.8, Mean Platelet Volume 9.6, Neutrophils (%) (Auto) 54.5, Lymphocytes (%) (Auto) 31.0, Monocytes (%) (Auto) 11.3, Eosinophils (%) (Auto) 2.1, Basophils (%) (Auto) 0.9, Neutrophils # (Auto ) 2.54, Lymphocytes # (Auto) 1.45, Monocytes # (Auto) 0.53, Eosinophils # (Auto ) 0.10, Basophils # (Auto) 0.04 09/04/17 04:56 Test 09/03/17 00:00 09/03/17 19:03 09/04/17 04:56 Urine Color YELLOW Urine Appearance CLEAR (CLEAR) Urine pH 5.5 (4.5-7.5) Urine Specific Mcdaniel 1.010 (1.000-1.030) Urine Protein NEG (NEG) Urine Glucose (UA) NEG (NEG) Urine Ketones NEG (NEG) Urine Occult Blood NEG (NEG) Urine Nitrite NEG (NEG) Urine Bilirubin NEG (NEG) Urine Urobilinogen NEG (NEG) Urine Leukocyte Esterase NEG (NEG) Urine Opiates Screen POS (NEG) Urine Methadone, Qualitative NEG (NEG) Urine Barbiturates NEG (NEG) Urine Phencyclidine (PCP) Level NEG (NEG) Ur Amphetamine/Methamphetamine NEG (NEG) MDMA (Ecstasy) Screen NEG (NEG) Urine Benzodiazepines Screen NEG (NEG) Urine Cocaine Metabolite NEG (NEG) Urine Marijuana (THC) NEG (NEG) Prothrombin Time 10.0 SECONDS (9.0-12.0) Prothromb Time International Ratio 1.0 (0.9-1.1) Activated Partial Thromboplast Time 23.8 SECONDS (21.0-31.0) Partial Thromboplastin Ratio 0.9 Total Bilirubin 0.3 mg/dl (0.2-1) Direct Bilirubin < 0.1 mg/dl (0-0.2) Aspartate Amino Transf (AST/SGOT) 16 U/L (15-37) Alanine Aminotransferase (ALT/SGPT) 19 U/L (12-78) Alkaline Phosphatase 57 U/L (45-117) Total Creatine Kinase 62 U/L (26-192) Total Protein 6.4 gm/dl (6.4-8.2) Albumin 3.5 gm/dl (3.4-5.0) Human Chorionic Gonadotropin, Qual NEG (NEG) Salicylates Level 3.8 mg/dl (2.8-20) Acetaminophen Level 7 ug/ml (10-30) Ethyl Alcohol mg/dL 284.0 mg/dl (0-3) White Blood Count 4.67 K/uL (4.8-10.8) Red Blood Count 3.83 M/uL (4.2-5.4) Hemoglobin 12.2 g/dL (12.0-16.0) Hematocrit 36.1 % (37-47) Mean Corpuscular Volume 94.3 fL (80-100) Mean Corpuscular Hemoglobin 31.9 pg (25-34) Mean Corpuscular Hemoglobin Concent 33.8 g/dl (32-36) Platelet Count 185 K/uL (130-400) Mean Platelet Volume 9.6 fL (7.4-10.4) Neutrophils (%) (Auto) 54.5 % Lymphocytes (%) (Auto) 31.0 % Monocytes (%) (Auto) 11.3 % Eosinophils (%) (Auto) 2.1 % Basophils (%) (Auto) 0.9 % Neutrophils # (Auto) 2.54 K/uL (1.4-6.5) Lymphocytes # (Auto) 1.45 K/uL (1.2-3.4) Monocytes # (Auto) 0.53 K/uL (0.11-0.59) Eosinophils # (Auto) 0.10 K/uL (0-0.5) Basophils # (Auto) 0.04 K/uL (0-0.2) RDW Standard Deviation 50.7 fL (36.4-46.3) RDW Coefficient of Variation 14.9 % (11.5-14.5) Immature Granulocyte % (Auto) 0.2 % Immature Granulocyte # (Auto) 0.01 K/uL (0.00-0.02) Anion Gap 6.0 mmol/L (3-11) Est Creatinine Clear Calc Drug Dose 73.7 ml/min Estimated GFR () 102.0 Estimated GFR (Non- 88.0 BUN/Creatinine Ratio 12.0 (10-20) Calcium Level 7.4 mg/dl (8.5-10.1) Magnesium Level 1.8 mg/dl (1.8-2.4) Lipase 832 U/L (73-393) Medical Emergencies . Who to Call and When: Medical Emergencies: If at any time you feel your situation is an emergency, please call 911 immediately. . Non-Emergent Contact Non-Emergency issues call your: Primary Care Provider, Specialist (Psychiatry) Call Non-Emergent contact if: you have any medication questions . . "Provider Documentation" section prepared by Dom Hicks. .
--- NOTE | 2017-09-04 14:02 | Discharge Summary ---
Discharge Summary Date of Service Sep 04, 2017. Discharge Summary Admission Date: Sep 03, 2017 at 21:57 Discharge Date: Sep 04, 2017 Discharge Disposition: Acute care mental health Principal Diagnosis: alcohol and drug misuse, suicide ideation, depression, elevated lipase Medication Reconciliation Continued Medications: Aspirin (Aspirin Ec) 81 Mg Tab 81 MG PO DAILY Clopidogrel (Plavix) 75 Mg Tab 75 MG PO DAILY, TAB Metoprolol Succinate (Metoprolol Succinate ER) 25 Mg Tabcr 25 MG PO DAILY Sertraline Hcl (Zoloft) 100 Mg Tab 100 MG PO DAILY, TAB Admission Information HPI (per Admitting provider): CHIEF COMPLAINT: Depression, suicidal ideation, and drug overdose. HISTORY OF PRESENT ILLNESS: This 51-year-old female with past medical history significant for major depression, history of rheumatic heart disease and status post balloon mitral valvoplasty last month at [facility], tobacco use disorder, presents with suicidal ideation with alcohol overdose and 5 pills of her sons Percocet tablets. She was brought in by her sisters. The patient is alert and awake, but crying and saying she just wanted to end her pain. Her heart is broken since she was last 4 months ago with her . She has 2 sons, one is a 23-year-old who lives in the apartment and 17-year-old who lives with her. As per the sister, since she broke up, she is not doing well. She is very depressed. She is on Zoloft since last 4 months and it is not helping. Recently, dose was increased to 100 mg. The patient is constantly crying and saying that she just wanted to let her pain go and she is also drinking more lately. Usually, she used to work as DJ and she used to drink in the weekends, but lately as per sister she is drinking more since about last 1 month. Today, her alcohol level was 284. Tylenol was less than 7 and positive for opiates. Currently, the patient is hemodynamically stable. Denies any chest pain. Denies shortness of breath. No nausea, no vomiting, no abdominal pain. Normal bowel and bladder movements. Ambulation is okay. No cough, no fever. Since her divorce, she is not eating much. She lost several pounds. As per sister, she is eating only here and there and also she is not sleeping much. Sleeping 1 hour here and there. She also developed some bruises since she was started on aspirin and Plavix since her valve surgery and she is supposed to be on aspirin and Plavix for 6 months. Patient is open to help with psychiatry counseling and medications. The patient and sister request for a small dose of Ativan to relax for tonight and they are not worried about alcohol withdrawal as patient has never had withdrawal symptoms in the past and she did not drink much in the past, just started drinking more recently. ALLERGIES: PENICILLINS. PAST MEDICAL HISTORY: As mentioned above. PAST SURGICAL HISTORY: Colonoscopy, balloon valvuloplasty of the mitral valve done on July 30, 2017. Right wrist tendon surgery in 1991. MEDICATIONS: The patient is on aspirin 81 mg p.o. daily, Plavix 75 mg p.o. daily, Toprol-XL 25 mg p.o. daily, Zoloft 100 mg p.o. daily. FAMILY HISTORY: Significant for father had CAD, hypertension. Mother has dementia, diabetes, hypertension. Son has migraines. SOCIAL HISTORY: Currently . Smokes everyday. Previously used to drink on the weekends, but currently drinking more, somewhat few times in a week since last 1 month. No drug history. REVIEW OF SYMPTOMS: As per HPI. Rest of the symptoms negative. Physical Exam (per Admitting): PHYSICAL EXAMINATION: GENERAL: Patient seems depressed, constantly crying, moderately build. VITAL SIGNS: Temperature 36.8, pulse 57, respiratory rate 18, blood pressure 128/85, oxygen 100% on room air. HEENT: No pallor, no icterus. Pupils equal, round, and react to light. NECK: No JVD, no neck masses, no carotid bruits. CARDIOVASCULAR: S1, S2 heard. Regular rate and rhythm. No murmur, no gallop. RESPIRATORY SYSTEM: Clear to auscultation bilaterally. No wheezing, no crackles. ABDOMEN: Soft. Bowel sounds present. Nontender. No distention. CENTRAL NERVOUS SYSTEM: Cranial nerves II-XII grossly intact. Nonfocal. EXTREMITIES: Mild pedal edema. No erythema seen. Hospital Course This is a 51 year old F who was brought to hospital for admission for suicidal and substance misuse -alcohol and Percocet Patient was found to have elevated alcohol level on admission however when re- assessed by medical doctor, patient does not exhibit signs of lethargy or intoxication or withdrawal symptoms from alcohol or narcotic medication. Patient was found to have elevated levels of lipase 2344 but this is downtrending to 832 on follow up lab work. There is no abdominal tenderness on exam that would suggest pancreatitis Patient is known to have History of rheumatic heart disease and mitral valve disease, status post balloon mitral valvoplasty, on aspirin, Plavix, and Toprol- XL. Patient agrees to undergo inpatient psychiatry evaluation and will be discharged from medical service and transferred to the behavioral health floor of the psychiatry department. Total time spent on discharge = This includes examination of the patient, discharge planning, medication reconciliation, and communication with other providers. Discharge Instructions see above
[2017-09-04 14:04] VITALS: BP 135/78; PULSE 64; TEMP 37.3; O2SAT 96
--- NOTE | 2017-09-04 15:08 | Psychiatric Consultation ---
Consultation Date of Consultation Sep 04, 2017. Identifying Data 51-year-old white female with a history of depression treated by her PCP who is admitted medically after an intentional alcohol and opiate overdose in the context of marital discord. Chief Complaint "Well I left work, got on my phone, and everyone was sending the pictures of my with his f---ing girlfriend ". History of Present Illness The patient presented to the emergency room last night via EMS after overdosing on whiskey and 4-5 tablets of Parthenon. Family notified EMS. She told ER staff she did not want to live anymore, and admitted to depression. Blood alcohol level was 284, drug screen was positive for opiates, and lipase was elevated at 2344. She was continued on her home medications he received IV fluids. On my assessment today, she was seen with her sister, Jennifer at the bedside, at her request. She is tearful and upset when discussing her relationship with her , noting that he left her in March for another woman, and he has been very difficult. She has no psychiatric history prior to March, but around that time became depressed, and about 3 months ago was started on sertraline by her PCP. The dose was increased to 100 mg daily about a month ago. He states that her left her and moved in with his parents, but then later told her he was no longer seeing the other woman, and they were considering reconciling. She indicates he has not been honest with her, and yesterday was his birthday, he went to [place] with his girlfriend, and posted photographs of them together on social media. The patient's friend saw this and send her the pictures so that she would know he was lying, and she became very upset. She says she feels "like a fool," and is very hurt. Yesterday she felt "I just cannot deal with it anymore," so drink whiskey and took 4-5 tablets of Parthenon, which were her sons. She denies that she had researched suicide or planned to overdose, but did it impulsively and at the time was thinking that she "would not be in pain anymore." She then talks that her oldest son's girlfriend, who contacted her son, who called police. Her sister arrived at the house before police, and called EMS. Her 17-year-old son lives with her, but was not home at the time of the overdose. She admits to severe depression, describing her mood is "always alone, always sad," has been crying daily, with decreased sleep and appetite. She has lost 68 pounds since March, stating she stopped eating because she had no appetite and frequently feels nauseated. Her sister says she has been "living on coffee and cigarettes." She denies symptoms of anxiety, panic, adrian, and psychosis. Her sister is very supportive and encourages her to sign in for voluntary treatment, as the family is concerned about her and thinks that something needs to be done. Past Psychiatric History Current OP Treatment: no current treatment Prior OP Treatment: therapist (Patient saw a therapist once at a [facility], cannot recall their name, was referred through her EAP program. She did not feel like the therapist knew how to help her.) Prior Psych Hospitalizations: none Access to a Gun: Yes (Patient owns a handgun, which is at her house, but notes that her took it apart and it is in pieces.) Suicide Attempts: No Past Medication Trials None. Additional Notes Patient denies any history of depression or any other mental health issues prior to March 2017 when her left her. She denies any history of suicidal thinking, but her sister states that family members that the patient had called her last week and "threatened to do something to herself," but he came and talked with her. The patient denies that this happened. Past Medical/Surgical History (1) S/P balloon mitral valvuloplasty PCP is Dr. Sidhu at [facility] Allergies Allergies: Coded Allergies: Penicillins (Unverified Allergy, Intermediate, HIVES, 06/20/17) as per patient as a child Home Medications Scheduled Aspirin (Aspirin Ec), 81 MG PO DAILY Clopidogrel (Plavix), 75 MG PO DAILY Metoprolol Succinate (Metoprolol Succinate ER), 25 MG PO DAILY Sertraline Hcl (Zoloft), 100 MG PO DAILY Family History History of Suicide: No History of Substance Abuse: Yes (Sister with alcoholism) Psychiatric History: No Alcohol Use Alcohol Use In Past 12 Months: Yes (Patient drinks 3-4 beers on weekends, but admits that since her left, she has been drinking more to numb her feelings then for pleasure. She denies any history of problem drinking, substance abuse treatment, negative consequences to drinking, or withdrawal symptoms.) Smoking Use Smoking Status: Current Every Day Smoker Substance History Denies recreational drug use, abuse of prescription medications, illicit drug use. Personal History Lives in: [place] with 17-year-old son Childhood: Born in [facility], grew up in [place]. Education: graduated from high school Work History: Has worked for [employer] for 30 years. Relationship History: ( left her in March 2017 after 25 years of marriage) Children: 2 sons, ages 17 and 23 Spiritual Affiliation: Raised [employer], nonpracticing Legal History: none Psychological Trauma History: Denies Hx Traumatic Event Additional Comments: Patient has 3 sisters and 1 brother. 2 sisters are local and are good supports. Her 23-year-old son lives in [place]. Review of Systems 10 systems reviewed; all are negative except as stated above. Examination Vital Signs Vital Signs Past 12 Hours Date Time Temp Pulse Resp B/P (MAP) Pulse Ox O2 Delivery O2 Flow Rate FiO2 09/04/17 14:04 37.3 64 20 96 Room Air 09/04/17 12:00 Room Air 09/04/17 11:45 37.3 64 20 135/78 (97) 96 09/04/17 08:00 Room Air 09/04/17 06:50 36.9 67 16 105/63 (77) 95 Room Air 09/04/17 04:43 36.7 77 16 103/61 (75) 96 Room Air 09/04/17 04:00 Room Air Laboratory Results Last 24 Hours Test 09/03/17 19:03 09/04/17 04:56 White Blood Count 7.71 K/uL 4.67 K/uL Red Blood Count 4.30 M/uL 3.83 M/uL Hemoglobin 13.8 g/dL 12.2 g/dL Hematocrit 40.3 % 36.1 % Mean Corpuscular Volume 93.7 fL 94.3 fL Mean Corpuscular Hemoglobin 32.1 pg 31.9 pg Mean Corpuscular Hemoglobin Concent 34.2 g/dl 33.8 g/dl Platelet Count 215 K/uL 185 K/uL Mean Platelet Volume 9.7 fL 9.6 fL Neutrophils (%) (Auto) 70.2 % 54.5 % Lymphocytes (%) (Auto) 19.2 % 31.0 % Monocytes (%) (Auto) 9.2 % 11.3 % Eosinophils (%) (Auto) 0.8 % 2.1 % Basophils (%) (Auto) 0.5 % 0.9 % Neutrophils # (Auto) 5.41 K/uL 2.54 K/uL Lymphocytes # (Auto) 1.48 K/uL 1.45 K/uL Monocytes # (Auto) 0.71 K/uL 0.53 K/uL Eosinophils # (Auto) 0.06 K/uL 0.10 K/uL Basophils # (Auto) 0.04 K/uL 0.04 K/uL RDW Standard Deviation 50.4 fL 50.7 fL RDW Coefficient of Variation 14.8 % 14.9 % Immature Granulocyte % (Auto) 0.1 % 0.2 % Immature Granulocyte # (Auto) 0.01 K/uL 0.01 K/uL Prothrombin Time 10.0 SECONDS Prothromb Time International Ratio 1.0 Activated Partial Thromboplast Time 23.8 SECONDS Partial Thromboplastin Ratio 0.9 Sodium Level 135 mmol/L 141 mmol/L Potassium Level 3.5 mmol/L 3.8 mmol/L Chloride Level 106 mmol/L 114 mmol/L Carbon Dioxide Level 22 mmol/L 21 mmol/L Anion Gap 7.0 mmol/L 6.0 mmol/L Blood Urea Nitrogen 13 mg/dl 9 mg/dl Creatinine 0.86 mg/dl 0.78 mg/dl Est Creatinine Clear Calc Drug Dose 66.9 ml/min 73.7 ml/min Estimated GFR () 90.7 102.0 Estimated GFR (Non- 78.2 88.0 BUN/Creatinine Ratio 15.1 12.0 Random Glucose 93 mg/dl 78 mg/dl Calcium Level 8.2 mg/dl 7.4 mg/dl Total Bilirubin 0.3 mg/dl Direct Bilirubin < 0.1 mg/dl Aspartate Amino Transf (AST/SGOT) 16 U/L Alanine Aminotransferase (ALT/SGPT) 19 U/L Alkaline Phosphatase 57 U/L Total Creatine Kinase 62 U/L Total Protein 6.4 gm/dl Albumin 3.5 gm/dl Lipase 2344 U/L 832 U/L Human Chorionic Gonadotropin, Qual NEG Salicylates Level 3.8 mg/dl Acetaminophen Level 7 ug/ml Ethyl Alcohol mg/dL 284.0 mg/dl Magnesium Level 1.8 mg/dl Mental Examination During interview pt is: alert and oriented, cooperative Appearance: appropriately dressed (Hospital gown), disheveled Eye contact is: fair Motor behavior is: no abnormal motor movements Speech: normal in rate, rhythm & volume Affect: mood congruent, depressed, tearful Mood is: depressed Thought process: goal directed Thought content: reality based without delusions Suicidal thought are: present (Admits that she overdosed yesterday as she did not want to feel pain anymore) Homicidal thoughts are: denied Hallucinations: denies auditory, denies visual Cognition: memory grossly intact, attention grossly intact, language grossly intact Intelligence estimated to be: consistent with level of education Insight: fair Judgement: fair Impression / Recommendations Impression 51-year-old white female with a history of depression treated by her PCP who overdosed on whiskey and Parthenon yesterday in the context of marital discord. She is willing for voluntary admission to the psychiatric unit. Risk Factors Assessment : Yes /single/: Yes () Higher / Fall in social status: No Access to guns: Yes Health problems: Yes Mental Health Diagnoses: Yes Substance use disorders: No Previous attempt: No Family history of suicide: No Previous psychiatric stay: No Hopelessness: Yes Smoker: Yes Protective Factors Assessment : Yes (But and will be ) Responsible for young children: Yes Employed: Yes Stable relationships: No Supportive family: Yes Good rapport with provider: No (Saw her therapist once, and did not have good rapport) Recommendations (1) Depression Admission to the behavioral health unit once medically cleared.
== END 2017-09-04 14:30 | DRG 918 ==
LOC: EDBD 18:40 → C.EDC 18:42 → C.MS2W 21:57 → EDBEDREQ 22:11 → ENRESERV 22:13
PROVIDERS: ADMIT Hospitalist; ATTEND Hospitalist
DX: T40.2X2A Poisoning by other opioids, intentional self-harm, initial encounter (principal); T51.0X2A Toxic effect of ethanol, intentional self-harm, initial encounter; F10.10 Alcohol abuse, uncomplicated; F11.10 Opioid abuse, uncomplicated; R74.8 Abnormal levels of other serum enzymes; F32.9 Major depressive disorder, single episode, unspecified; Y90.9 Presence of alcohol in blood, level not specified; R63.4 Abnormal weight loss; I05.9 Rheumatic mitral valve disease, unspecified; F17.210 Nicotine dependence, cigarettes, uncomplicated; Z79.899 Other long term (current) drug therapy; Z79.82 Long term (current) use of aspirin; Z79.02 Long term (current) use of antithrombotics/antiplatelets; Z98.890 Other specified postprocedural states; Z88.0 Allergy status to penicillin; Z82.49 Family history of ischemic heart disease and other diseases of the circulatory system; Z83.3 Family history of diabetes mellitus; Z81.8 Family history of other mental and behavioral disorders; Z82.0 Family history of epilepsy and other diseases of the nervous system

== ENCOUNTER 2017-09-04 14:30 | Inpatient (IN) | payer BC ==
[~2017-09-04] VITALS: Ht 160 cm; Wt 63.0 kg
[~2017-09-04 14:30] MED LIST changes: -ASPI-435 PO; +ASPI81TA28 PO; +CLOP1TAB15 PO; +SERT1TAB68 PO; -SERT50TA PO; +TPRSR25 PO
[2017-09-04] MEDS ORDERED: ALUMINUM/MAGNESIUM SUSP 30 ML UDC PO PRN (15:00)
[2017-09-04] MEDS ORDERED: ACETAMINOPHEN 325 MG TAB PO PRN (15:00)
[2017-09-04] MEDS ORDERED: MAGNESIUM HYDROXIDE SUSP 30 ML UDC PO PRN (15:00)
[2017-09-04] MEDS ORDERED: SODIUM CHLORIDE 0.65% NA SOLN 45 ML (OCEAN) PRN (15:00)
[2017-09-04] MEDS ORDERED: hydrOXYzine HCL 25 MG TAB PO PRN ×2 (15:00)
[2017-09-04] MEDS ORDERED: BISMUTH SUBSALICYLATE PER ML OMNICELL CHARGE PO PRN (15:00)
--- NOTE | 2017-09-04 15:42 | Psychiatric History & Physical ---
History Date of Service Sep 04, 2017. Identifying Data Kalee Jason is a 51-year-old female admitted on Sep 04, 2017 at 14:30 who currently lives in [place] with her son, has a history of depression diagnosed about 4 months ago and treated by her PCP, and was admitted on a 201 voluntary commitment for an intentional overdose on alcohol and opiate pain medications in the context of marital discord. Patient is admitted from transfer from the medical floor, after presenting to the emergency room yesterday intoxicated and admitting to suicidal thoughts and the overdose. The patient was brought to the ED by the ambulance. Information provided by the patient is considered to be reliable. Chief Complaint "I am so sad ". History of Present Illness Patient is known to me from psychiatric consultation earlier today on the medical floor. She presented to the emergency room last night via EMS after overdosing on whiskey and 4-5 tablets of Phoenix. Family notified EMS. She told ER staff she did not want to live anymore, and admitted to depression. Blood alcohol level was 284, drug screen was positive for opiates, and lipase was elevated at 2344. She was continued on her home medications he received IV fluids. On my assessment today, she was seen with her sister, Jennifer at the bedside, at her request. She is tearful and upset when discussing her relationship with her , noting that he left her in March for another woman, and he has been very difficult. She has no psychiatric history prior to March, but around that time became depressed, and about 3 months ago was started on sertraline by her PCP. The dose was increased to 100 mg daily about a month ago. He states that her left her and moved in with his parents , but then later told her he was no longer seeing the other woman, and they were considering reconciling. She indicates he has not been honest with her, and yesterday was his birthday, he went to [place] with his girlfriend, and posted photographs of them together on social media. The patient's friend saw this and send her the pictures so that she would know he was lying, and she became very upset. She says she feels "like a fool," and is very hurt. Yesterday she felt "I just cannot deal with it anymore," so drink whiskey and took 4-5 tablets of Phoenix, which were her sons. She denies that she had researched suicide or planned to overdose, but did it impulsively and at the time was thinking that she "would not be in pain anymore." She then talks that her oldest son's girlfriend, who contacted her son, who called police. Her sister arrived at the house before police, and called EMS. Her 17-year-old son lives with her, but was not home at the time of the overdose. She admits to severe depression, describing her mood is "always alone, always sad," has been crying daily, with decreased sleep and appetite. She has lost 68 pounds since March, stating she stopped eating because she had no appetite and frequently feels nauseated. Her sister says she has been "living on coffee and cigarettes. " She denies symptoms of anxiety, panic, adrian, and psychosis. Her sister is very supportive and encouraged her to sign in for voluntary treatment, as the family is concerned about her and thinks that something needs to be done. The patient was initially unsure if she wanted inpatient treatment, but after some discussion, agreed to voluntary admission. Past Psychiatric History Current OP Treatment: no current treatment (PCP prescribes medication) Prior OP Treatment: therapist (Saw a therapist once at a local [facility], cannot recall their name, was referred through her [facility]AP program. She did not feel like the therapist knew how to help her.) Prior Psych Hospitalizations: none Access to a Gun: Yes (Has a Glock handgun which she uses for target shooting, which is at her house, but notes her took it apart and it is in pieces.) Suicide Attempts: No Past Medication Trials None Additional Notes No previous mental health issues prior to March 2017 when her left her. Patient denies any history of suicidal thoughts, but her sister says that last week the patient had called her and said that she might do something to hurt herself, but he came and talked with her. The patient denies that this happened. Past Medical/Surgical History (1) S/P balloon mitral valvuloplasty Allergies Allergies: Coded Allergies: Penicillins (Unverified Allergy, Intermediate, HIVES, 06/20/17) as per patient as a child Home Medications Scheduled Aspirin (Aspirin Ec), 81 MG PO DAILY Clopidogrel (Plavix), 75 MG PO DAILY Metoprolol Succinate (Metoprolol Succinate ER), 25 MG PO DAILY Sertraline Hcl (Zoloft), 100 MG PO DAILY Family History History of Suicide: No History of Substance Abuse: Yes (Sister with alcoholism) Psychiatric History: No Alcohol Use Alcohol Use In Past 12 Months: Yes (Drink 3-4 beers on weekends) Admits that since her left, she has been drinking more to numb her feelings than for pleasure. She denies any history of problem drinking, substance abuse treatment, negative consequences to drinking, and withdrawal symptoms. Smoking Use Smoking Status: Current Every Day Smoker Substance History Patient denies recreational drug use, abuse of prescription medications, and illicit drug use. Personal History Lives in: [place] with 17-year-old son Childhood: From [place], grew up in [place]. Education: graduated from high school Work History: Has worked at [employer] for 30 years. Relationship History: ( left her in March 2017 after 25 years of marriage.) Children: 2 sons, ages 17 and 23. Spiritual Affiliation: Raised Rastafari, nonpracticing. Legal History: none Psychological Trauma History: Denies Hx Traumatic Event Review of Systems 10 systems reviewed; negative except as stated above. Examination Physical Examination A physical exam was performed on the medical floor prior to admission to the unit by Dr. Hicks. I accept that physical as correct/medical clearance for the inpatient physical exam. Mental Examination During interview pt is: alert and oriented, cooperative Appearance: appropriately dressed, appropriately groomed Eye contact is: good Motor behavior is: steady gait & station, no abnormal motor movements Speech: normal in rate, rhythm & volume Affect: mood congruent, depressed Mood is: depressed Thought process: goal directed Thought content: reality based without delusions Suicidal thought are: present Homicidal thoughts are: denied Hallucinations: denies auditory, denies visual Cognition: memory grossly intact, attention grossly intact, language grossly intact Intelligence estimated to be: average Insight: fair Judgement: fair Impression / Recommendations Impression 51-year-old white female with no psychiatric history until she developed depressive symptoms about 4 months ago when her left her after 25 years of marriage. There has been some back and forth with him, and she became acutely despondent yesterday after learning that he had been lying to her and was seeing another woman. She impulsively drank whiskey and took her son's Phoenix to "numb the pain." She requires inpatient treatment due to the severity of her depressive symptoms and risk for self-harm and suicide if discharged. Inventory Assets Strengths: supportive family, employed Needs: outpatient care, avoidance of alcohol, safety plan Risk Factors Assessment : Yes /single/: Yes () Higher / Fall in social status: No Access to guns: Yes Health problems: Yes Mental Health Diagnoses: Yes Substance use disorders: No (But drinking more recently) Previous attempt: No Family history of suicide: No Previous psychiatric stay: No Hopelessness: Yes Smoker: Yes Protective Factors Assessment Amish beliefs: Yes : No () Responsible for young children: Yes Employed: Yes Stable relationships: No Supportive family: Yes Recommendations (1) Depression 09/04 -the patient would like to try increasing her sertraline dose prior to switching to a different agent, and as she is tolerating it well without side effects, this is a reasonable initial plan. Increased to 150 mg daily for tomorrow. -Encourage group attendance, work on healthy coping skills and a discharge safety plan. This should include a plan to secure her handgun until depression has stabilized. -Schedule family meeting. -Refer for outpatient follow-up with a therapist and psychiatrist. -Recommend avoiding alcohol until depression has stabilized. CPT Code Initial Hospital Care: 49788 Problem Qualifiers (1) Depression: Depression Type: major depressive disorder Major depression recurrence: single episode Active/Remission status: currently active Major depression episode severity: severe Psychotic features: without psychotic features Qualified Codes: F32.2 - Major depressive disorder, single episode, severe without psychotic features
[2017-09-04 18:27] VITALS: BP 117/64; PULSE 64; TEMP 37.5; Ht 160 cm; Wt 63.0 kg
[2017-09-05 07:07] VITALS: BP_SYST 127; BP_SYST 131; BP_DIAS 82; BP_DIAS 84; PULSE 61; PULSE 80; TEMP 36.6
[2017-09-05] MEDS: CLOPIDOGREL BISULFATE 75 MG TAB PO SCH (09:26)
[2017-09-05] MEDS: METOPROLOL SUCC 25MG EXT REL TAB PO SCH (09:26)
[2017-09-05] MEDS: ASPIRIN 81 MG ECTAB PO SCH (09:26)
[2017-09-05] MEDS: SERTRALINE HCL 100 MG TAB PO SCH (09:27)
--- NOTE | 2017-09-05 12:39 | Psychiatric Progress Notes ---
Progress Note Date of Service Sep 05, 2017. Interval History Kalee Jason is a 51-year-old female admitted on Sep 04, 2017 at 14:30 who currently lives in [place] with her son, has a history of depression diagnosed about 4 months ago and treated by her PCP, and was admitted on a 201 voluntary commitment for an intentional overdose on alcohol and opiate pain medications in the context of marital discord. Patient is admitted from transfer from the medical floor, after presenting to the emergency room yesterday intoxicated and admitting to suicidal thoughts and the overdose. The patient was brought to the ED by the ambulance. Information provided by the patient is considered to be reliable. Chief Complaint "Definitely better than it was ". Subjective Patient was seen & assessed interval progress reviewed with staff, who reports that she has been processing her relationship stressors with staff, has been tearful at times, and said she thinks she is going through a midlife crisis. She says she still loves her and sees him multiple times a week, but does not think he would come in for a meeting. She agreed to a family meeting with her sister, which is scheduled for this afternoon. On my assessment, she states that mood has improved since yesterday, she feels more hopeful, and denies suicidal thoughts. She talks tearfully about her overdose, stating that she was so upset and fed up with her that she decided to drink the liquor and overdose, and then sent him a text message saying it was all his fault, and she hoped he slept well "after what happens today." She now feels that this was "really stupid," and denies suicidal thoughts. She continues to endorse anger and sadness about her marriage, stating she still loves her , but that he has been taking advantage of her. He has been telling her that he does not know what he wants, but she says it has been 5 months since he left, and she cannot wait anymore. She has not spoken to him since hospitalization, and although she knows that she needs to talk to him, she does not think he would be willing to participate in a family meeting, as he refused to go to couples therapy with her in the past. She talks about her other triggers, including drinking, and admits that she has been drinking to deal with her emotions and that it does not help. She also reports loneliness is a significant stressor, as she lives remotely, has financial strain so cannot readily go visit others, but states her sister and father both live nearby. She continues to hope that she will be discharged tomorrow, and Saturday is her birthday, and she hopes to spend it with family. Sleep Information Total Hours of Sleep: 8.50 Meal Information Percent of Breakfast Consumed: 100 Percent of Dinner Consumed: 100 Mental Status Exam During interview pt is: alert and oriented, cooperative Appearance: appropriately dressed, appropriately groomed Eye contact is: good Motor behavior is: steady gait & station, no abnormal motor movements Speech: normal in rate, rhythm & volume Affect: mood congruent, depressed (Becomes depressed and tearful when discussing her marriage), tearful, euthymic (Initially, smiling appropriately) Mood is: other ("Much better") Thought process: goal directed Thought content: reality based without delusions Suicidal thought are: denied Homicidal thoughts are: denied Hallucinations: denies auditory, denies visual Cognition: memory grossly intact, attention grossly intact, language grossly intact Intelligence estimated to be: average Insight: fair Judgement: fair Impression 51-year-old white female with first episode of depression starting 4 months ago when her left her after 25 years of marriage. She became acutely suicidal after learning that he had been lying to her and was seeing another woman, and impulsively drank whiskey and took her son's Vivian. She requires inpatient treatment due to the severity of her depressive symptoms and risk for self-harm and suicide if discharged. Plan (1) Depression 09/04 -the patient would like to try increasing her sertraline dose prior to switching to a different agent, and as she is tolerating it well without side effects, this is a reasonable initial plan. Increased to 150 mg daily for tomorrow. -Encourage group attendance, work on healthy coping skills and a discharge safety plan. This should include a plan to secure her handgun until depression has stabilized. -Schedule family meeting. -Refer for outpatient follow-up with a therapist and psychiatrist. -Recommend avoiding alcohol until depression has stabilized. 09/05 -TSH checked to rule out hypothyroidism and within normal limits. -Family meeting with sister today. -Patient encouraged to work on a plan to avoid alcohol, utilize healthier coping skills, and increase her socialization, as she identifies drinking and being alone as two of her triggers. -Work on safety plan, including securing medications dangerous in overdose prior to discharge, and securing her gun. Discharge / Aftercare Planning Primary Care Physician: Name: Dr. Terell Avila in [place] Visit Code E&M Code: 94162 Inventory Assets Strengths: supportive family, employed Needs: outpatient care, avoidance of alcohol, safety plan Risk Factors Assessment : Yes /single/: Yes () Higher / Fall in social status: No Access to guns: Yes Health problems: Yes Mental Health Diagnoses: Yes Substance use disorders: No (But drinking more recently) Previous attempt: No Family history of suicide: No Previous psychiatric stay: No Hopelessness: Yes Smoker: Yes Protective Factors Assessment Mormonism beliefs: Yes : No () Responsible for young children: Yes Employed: Yes Stable relationships: No Supportive family: Yes Data Vital Signs Last 24 Hrs: Date Time Temp Pulse Resp B/P (MAP) Pulse Ox O2 Delivery O2 Flow Rate FiO2 09/05/17 07:07 36.6 61 16 127/82 80 131/84 09/04/17 18:27 37.5 64 14 117/64 Meds Administered Last 24 Hrs: Meds Administered (Past 24Hrs) Medications (Trade) Dose Ordered Sig/Amanda Route Start Time Stop Time Status Last Admin Dose Admin Aspirin (Ecotrin Tab) 81 mg DAILY PO 09/05/17 09:00 10/05/17 08:59 09/05/17 09:26 81 MG Clopidogrel Bisulfate (plAVix TAB) 75 mg DAILY PO 09/05/17 09:00 10/05/17 08:59 09/05/17 09:26 75 MG Metoprolol Succinate (Toprol Xl Tab) 25 mg DAILY PO 09/05/17 09:00 10/05/17 08:59 09/05/17 09:26 25 MG Sertraline HCl (Zoloft Tab) 150 mg QAM PO 09/05/17 09:00 10/05/17 08:59 09/05/17 09:27 150 MG Lab Results Last 24 Hrs: Last 24 Hours Test 09/05/17 07:13 Thyroid Stimulating Hormone (TSH) 1.090 uIu/ml Problem Qualifiers (1) Depression: Depression Type: major depressive disorder Major depression recurrence: single episode Active/Remission status: currently active Major depression episode severity: severe Psychotic features: without psychotic features Qualified Codes: F32.2 - Major depressive disorder, single episode, severe without psychotic features
[2017-09-06 07:06] VITALS: BP_SYST 116; BP_SYST 125; BP_DIAS 73; BP_DIAS 77; PULSE 59; PULSE 66; TEMP 36.7
[2017-09-06] MEDS: ASPIRIN 81 MG ECTAB PO SCH (08:34)
[2017-09-06] MEDS: CLOPIDOGREL BISULFATE 75 MG TAB PO SCH (08:34)
[2017-09-06] MEDS: SERTRALINE HCL 100 MG TAB PO SCH (08:34)
[2017-09-06] MEDS: METOPROLOL SUCC 25MG EXT REL TAB PO SCH (08:34)
--- NOTE | 2017-09-06 13:49 | Discharge Instructions ---
Discharge Information Report Includes Report will include the: Discharge Instructions & Summary Admission Admission Date / Time: Sep 04, 2017 at 14:30 Reason for Admission: Depression Single Episode Discharge Discharge Diagnosis / Problem: Depression Condition at Discharge: Good Discharge Goals Goal(s): Improve function, Increase independence, Learn about illness, Therapeutic intervention, Prevent Disease Progression Activity Recommendations Activity Limitations: resume your previous activity . Instructions / Follow-Up Instructions / Follow-Up . SPECIAL CARE INSTRUCTIONS: 1. Follow through with your scheduled aftercare appointments. If unable to keep an appointment, please call to reschedule. 2. Take your medication only as prescribed. Medication should not be changed or stopped without the approval of your doctor. In the event of worsening symptoms or concerns about side effects, contact your doctor immediately. 3. Utilize new healthy coping skills, anger management skills, and stress management skills learned during your hospitalization. Journal feelings and process them with a support person. Identify stressors or situations that may result in relapse, deterioration or inappropriate behaviors and develop a plan to deal with those issues. 4. If your coping skills are ineffective and you are in crisis, contact your outpatient providers for direction. If unable to reach your providers, please call the CAN HELP LINE AT or go to the closest Emergency Room. 5. Avoid alcohol and un-prescribed drugs. 6. You have been provided with the Mental Health Advance Directives Pamphlet for your review. AFTERCARE APPOINTMENTS: * Please call your insurance company prior to your scheduled appointment to confirm your aftercare providers are covered. Take your insurance information to your appointments. . Discharge / Aftercare Planning Primary Care Physician: Name: Dr. Terell Avila in [place] Therapist: Name Of Therapist: [facility] Date of Appointment: September 19, 2017 Time of Appointment: 3:45 pm Appointment Comments: [facility] [address] [id number] Specialist: Name: Dr. Ambrose Avila - [facility] follow-up Date of Appointment: September 17, 2017 Time of Appointment: 10:45 am Appointment Notes: [address] [place] [id number] . Follow-Up Care Plan for Follow-Up Care: Pt's aftercare was established during his admission to allow for timely followup with psychiatric providers following discharge. Pt will continue to see her PCP for management of medications and has been referred for therapy. Current Hospital Diet Patient's current hospital diet: Regular Diet Discharge Diet Recommended Diet: Regular Diet Procedures Procedures Performed: No Pending Studies Pending Studies at Discharge: No Medical Emergencies . Who to Call and When: Medical Emergencies: For questions or emergencies related to your hospital stay, please contact the Inpatient Behavioral Health Unit at [phone]. A behavioral health clinician is on-call 10/12 for the Behavioral Health Unit for emergencies At any time you feel your situation is an emergency, you may also call 911 immediately. . Non-Emergent Contact Non-Emergency issues call your: Primary Care Provider, Therapist Advance Directives Do You Have an Existing Mental: No Existing Living Will: No Existing Power of Consulting [employer] Analyst: No Advance Directives Info Given: To Pt/S.O. Advance Directives Reason: Declines as Mental Health Visit. Discharge Summary Admission HPI Per the Admitting provider: Patient is known to me from psychiatric consultation earlier today on the medical floor. She presented to the emergency room last night via EMS after overdosing on whiskey and 4-5 tablets of [place]. Family notified EMS. She told ER staff she did not want to live anymore, and admitted to [facility]. Blood alcohol level was 284, drug screen was positive for opiates, and lipase was elevated at 2344. She was continued on her home medications he received IV fluids. On my assessment today, she was seen with her sister, Jennifer at the bedside, at her request. She is tearful and upset when discussing her relationship with her , noting that he left her in March for another woman, and he has been very difficult. She has no psychiatric history prior to March, but around that time became depressed, and about 3 months ago was started on sertraline by her PCP. The dose was increased to 100 mg daily about a month ago. He states that her left her and moved in with his parents , but then later told her he was no longer seeing the other woman, and they were considering reconciling. She indicates he has not been honest with her, and yesterday was his birthday, he went to [place] with his girlfriend, and posted photographs of them together on social media. The patient's friend saw this and send her the pictures so that she would know he was lying, and she became very upset. She says she feels "like a fool," and is very hurt. Yesterday she felt "I just cannot deal with it anymore," so drink whiskey and took 4-5 tablets of [place], which were her sons. She denies that she had researched suicide or planned to overdose, but did it impulsively and at the time was thinking that she "would not be in pain anymore." She then talks that her oldest son's girlfriend, who contacted her son, who called police. Her sister arrived at the house before police, and called EMS. Her 17-year-old son lives with her, but was not home at the time of the overdose. She admits to severe depression, describing her mood is "always alone, always sad," has been crying daily, with decreased sleep and appetite. She has lost 68 pounds since March, stating she stopped eating because she had no appetite and frequently feels nauseated. Her sister says she has been "living on coffee and cigarettes. " She denies symptoms of anxiety, panic, adrian, and psychosis. Her sister is very supportive and encouraged her to sign in for voluntary treatment, as the family is concerned about her and thinks that something needs to be done. The patient was initially unsure if she wanted inpatient treatment, but after some discussion, agreed to voluntary admission. Hospital Course (1) Depression 09/04 -the patient would like to try increasing her sertraline dose prior to switching to a different agent, and as she is tolerating it well without side effects, this is a reasonable initial plan. Increased to 150 mg daily for tomorrow. -Encourage group attendance, work on healthy coping skills and a discharge safety plan. This should include a plan to secure her handgun until depression has stabilized. -Schedule family meeting. -Refer for outpatient follow-up with a therapist and psychiatrist. -Recommend avoiding alcohol until depression has stabilized. 09/05 -TSH checked to rule out hypothyroidism and within normal limits. -Family meeting with sister today. -Patient encouraged to work on a plan to avoid alcohol, utilize healthier coping skills, and increase her socialization, as she identifies drinking and being alone as two of her triggers. -Work on safety plan, including securing medications dangerous in overdose prior to discharge, and securing her gun. Risk Factors Assessment : Yes /single/: Yes () Higher / Fall in social status: No Access to guns: Yes Health problems: Yes Mental Health Diagnoses: Yes Substance use disorders: No (But drinking more recently) Previous attempt: No Family history of suicide: No Previous psychiatric stay: No Hopelessness: Yes Smoker: Yes Protective Factors Assessment Taoist beliefs: Yes : No () Responsible for young children: Yes Employed: Yes Stable relationships: No Supportive family: Yes Day of Discharge Assessment COURSE OF HOSPITALIZATION: 51-year-old female admitted on September 04, 2017 for an intentional overdose on alcohol and opiate pain medications. Patient reports the suicide attempt was triggered by recent marital issues. Patient underwent separation from her , and has been experiencing symptoms of depression which have been treated with 100 mg of sertraline. Patient's dose of sertraline was increased to 50 mg during her hospitalization. She reports improvement in mood with increased dose as well as processing she has done during her hospitalization. Patient reports feeling "really stupid" regarding her suicide attempt, and has denied ongoing suicidal ideation. Patient has engaged in group and recreational therapies during admission, and has completed a safety plan prior to discharge which was personally reviewed by this provider. DAY OF DISCHARGE ASSESSMENT: Patient's case was reviewed this morning at treatment team. Staff reports the patient has been improving over the course of her admission and rated herself "7 -8 and hopeful" last evening at community meeting. Patient was seen today to assess readiness for discharge. Patient reports ongoing feelings of hopefulness and feels ready to return home. Patient engaged in the family meeting with her 2 sisters this afternoon in which remaining concerns were addressed prior to discharge. Patient denies suicidal ideation, or onset of new psychiatric concerns. Based on review of the patient's records and presentation at this encounter, the patient appears appropriate for discharge today. Transition of care record was reviewed with the patient. Pt was encouraged to continue to take medications as prescribed until recommended to stop by another prescriber. The patient presented as alert and cooperative. The patient was casually dressed and groomed. Eye contact was good. No psychomotor restlessness or agitation was noted. Speech was normal in rate, rhythm, and volume. Affect was mood congruent. The patients mood appeared dulled, but less depressed. Thought processes were clear, coherent and goal directed without evidence of loose associations or flight of ideas. Thought content/perception was reality based without delusions. The patient denied suicidal and homicidal ideation. The patient denied hallucinations and did not appear to be responding to internal stimuli. Cognition was grossly intact with orientation to person, place and time. Fund of Knowledge/Intelligence were consistent with level of education. Insight and Judgement were fair. Laboratory Refer to printed laboratory reports Test 09/05/17 07:13 Thyroid Stimulating Hormone (TSH) 1.090 Total Time Total Time Spent (min): Greater than 30 minutes Total Time Included: examination of the patient, discharge planning, medication reconciliation, communication with other providers Tobacco Cessation at Discharge Smoking Status: Current Every Day Smoker FDA approved Prescription: declined med & out pt counseling (reports will be provided by PCP) Problem Qualifiers (1) Depression: Depression Type: major depressive disorder Major depression recurrence: single episode Active/Remission status: currently active Major depression episode severity: severe Psychotic features: without psychotic features Qualified Codes: F32.2 - Major depressive disorder, single episode, severe without psychotic features
[2017-09-06] MEDS ORDERED: ZLF/100 PO (15:47)
== END 2017-09-06 16:00 | disposition home or self-care (01) | DRG 885 ==
LOC: C.MHU 14:30
PROVIDERS: ADMIT Psychiatry & Neurology Psychiatry; ATTEND Psychiatry & Neurology Psychiatry
DX: F32.2 Major depressive disorder, single episode, severe without psychotic features (principal); R45.851 Suicidal ideations; T51.0X2A Toxic effect of ethanol, intentional self-harm, initial encounter; T40.2X2A Poisoning by other opioids, intentional self-harm, initial encounter; F17.200 Nicotine dependence, unspecified, uncomplicated; Z88.0 Allergy status to penicillin; Z79.82 Long term (current) use of aspirin